=== PATIENT | male | born 1935 | race Caucasian/White ===

== ENCOUNTER 2019-06-08 14:56 | Inpatient (IN) | payer MEDICARE, OTHER ==
--- NOTE | 2019-06-08 15:14 | ER Document Report ---
ED Medical Screen (RME) - General Chief Complaint: S/S of Possible Stroke Stated Complaint: DYSPHAGIA Primary Care Provider: MALCOLM HAMMOND [Primary Care Provider] - Follow up as needed Notes: Patient presents with dysarthria left-sided headache and symptoms began yesterday. Patient sent to CT scan without contrast for emergent CT scan of the head regarding CVA. Doctor's Discharge - Discharge Referrals: MALCOLM HAMMOND [Primary Care Provider] - Follow up as needed
--- NOTE | 2019-06-08 15:32 | RADIOLOGY REPORT (SQ) ---
EXAM DESCRIPTION: CT HEAD WITHOUT COMPLETED DATE/TIME: 06/08/2019 3:15 pm REASON FOR STUDY: cva COMPARISON: None. TECHNIQUE: Axial images acquired through the brain without intravenous contrast. Images reviewed wit h bone, brain and subdural windows. Images stored on PACS. All CT scanners at this facility use dose modulation, iterative reconstruction, and/or weight based d osing when appropriate to reduce radiation dose to as low as reasonably achievable (ALARA). [facility]: Dose Right [facility]: CareDose [facility]: Dose Right [facility]: Teradose 4D [facility]: Voxy RADIATION DOSE: CT Rad equipment meets quality standard of care and radiation dose reduction techniq ues were employed. CTDIvol: 53.2 mGy. DLP: 1070 mGy-cm.. LIMITATIONS: None. FINDINGS: VENTRICLES: Normal size and contour. CEREBRUM: No masses. No hemorrhage. No midline shift. Age appropriate white matter. No evidence for a cute infarction. CEREBELLUM: No masses. No hemorrhage. No alteration of density. No evidence for acute infarction. EXTRA-AXIAL SPACES: No fluid collections. ORBITS AND GLOBE: No intra- or extraconal masses. Normal contour of globe without masses. CALVARIUM: No fracture. PARANASAL SINUSES: No fluid or mucosal thickening. SOFT TISSUES: No mass or hematoma. OTHER: No other significant finding. IMPRESSION: NO ACUTE INTRACRANIAL FINDINGS. EVIDENCE OF ACUTE STROKE: NO. TECHNICAL DOCUMENTATION: JOB ID: [id number] [id number] Quality ID # [id number]: Final reports with documentation of one or more dose reduction techniques (e.g., Au tomated exposure control, adjustment of the mA and/or kV according to patient size, use of iterative reconstruction technique) 2010 [employer]- All Rights Reserved Reading location - IP/workstation name: [email or web address]
[2019-06-08 15:53] LABS: INTERNATIONAL RATION (INR) 0.97; PROTHROMBIN TIME 12.9 SEC (11.4-15.4)
[2019-06-08 15:54] LABS: PARTIAL THROMBOPLASTIN TIME 30.3 SEC (23.5-35.8)
--- NOTE | 2019-06-08 15:54 | ER Document Report ---
ED Neuro Symptoms/Deficit - General Chief Complaint: S/S of Possible Stroke Stated Complaint: DYSPHAGIA Time Seen by Provider: 06/08/19 15:25 Information source: Patient Cannot obtain history due to: Dementia, Mentally challenged Notes: History and physical and review of systems are all limited by patient's receptive aphasia. Apparently, starting on noon yesterday more than 24 hours ago, patient started having symptoms of stroke including left-sided headache and confusion. He did not seek medical attention until today. He was transferred here by EMS alone because of visitation policy. Patient cannot tell me if he is left or right handed. He does not know where he is. By report patient has a history of mild dementia and hypertension. He currently has no complaints. Possible dysphagia. His words are understandable; they just do not make sense. - HPI Patient complains to provider of: Other - Related Data Allergies/Adverse Reactions: prednisone Allergy (Unknown, Verified 06/08/19 15:33) Past Medical History - General Information source: Patient Cannot obtain history due to: Dementia, Altered mental status - Social History Smoking Status: Never Smoker Family History: Reviewed & Not Pertinent Patient has suicidal ideation: No Patient has homicidal ideation: No - Immunizations Immunizations up to date: Yes Review of Systems - Review of Systems -: Yes ROS unobtainable due to patient's medical condition Physical Exam - Vital signs Vitals: Pulse Resp BP Pulse Ox 64 16 161/91 H 97 06/08/19 15:08 06/08/19 15:08 06/08/19 15:08 06/08/19 15:08 Interpretation: Hypertensive - General General appearance: Appears well - HEENT Head: Normocephalic Eyes: Normal Conjunctiva: Normal Cornea: Normal Extraocular movements intact: Yes Pupils: PERRL Ears: Normal Tympanic membrane: Normal Sinus: Normal Nasal: Normal Mouth/Lips: Normal Mucous membranes: Normal Pharynx: Normal. No: Exudate Neck: Normal, Supple - Respiratory Respiratory status: No respiratory distress Chest status: Nontender Breath sounds: Normal - Cardiovascular Rhythm: Regular Heart sounds: Normal auscultation - Abdominal Inspection: Normal Tenderness: Nontender - Back Back: Normal - Extremities General upper extremity: Normal inspection, Normal ROM General lower extremity: Normal inspection, Normal ROM - Neurological Neuro grossly intact: Yes Cognition: Confused Orientation: Disoriented to person, Disoriented to place, Disoriented to time, Disoriented to events Chrissy Coma Scale Eye Opening: Spontaneous Chrissy Coma Scale Verbal: Confused [place] Coma Scale Motor: Obeys Commands [place] Coma Scale Total: 14 Speech: Normal Cranial nerves: Normal Cerebellar coordination: Normal Motor strength normal: LUE, RUE, LLE, RLE Additional motor exam normals: Equal jewelry designer, Dorsiflexion. No: Pronator drift Knee - Reflex grade: 2 = Normal - Psychological Associated symptoms: Normal affect, Normal mood - Skin Skin Temperature: Warm Skin Moisture: Dry Skin Color: Normal Course - Re-evaluation Re-evalutation: 06/08/19 15:56 CT BRAIN NAD PER RADIOLOGIST. 06/08/19 15:57 Patient is not a candidate for TPA since the symptoms started more than 24 hours ago. 06/08/19 17:36 CXR NAD PER RADIOLOGIST. 06/08/19 17:56 DISCUSSED CASE IN DETAIL WITH VAN GRANADOS, FOR ADMISSION. PT STABLE. - Vital Signs Vital signs: Temp Pulse Resp BP Pulse Ox 64 16 161/91 H 97 06/08/19 15:08 06/08/19 15:08 06/08/19 15:08 06/08/19 15:08 - Laboratory Result Diagrams: 06/08/19 15:10 06/08/19 15:10 - Diagnostic Test Radiology reviewed: Image reviewed, Reports reviewed - EKG Interpretation by Me EKG shows normal: Sinus rhythm Rate: Normal [place]/QRS: RBBB Heart block present: 1st Degree Additional EKG results interpreted by me: 06/08/19 16:51 ARTIFACT Discharge - Discharge Clinical Impression: Receptive aphasia CVA (cerebral vascular accident) Qualifiers: CVA mechanism: unspecified Qualified Code(s): I63.9 - Cerebral infarction, unspecified Hypertension Qualifiers: Hypertension type: unspecified Qualified Code(s): I10 - Essential (primary) hypertension Condition: Stable Disposition: ADMITTED INPATIENT Admitting Provider: Elias (Hospitalist) Unit Admitted: Telemetry
[2019-06-08 15:58] LABS: ALBUMIN 3.9 g/dL (3.5-5.0); ALKALINE PHOSPHATASE 81 U/L (38-126); ANION GAP 8 (5-19); ASPARTATE AMINO TRANSFERASE 25 U/L (17-59); BILIRUBIN,TOTAL 0.8 mg/dL (0.2-1.3); BLOOD UREA NITROGEN 12 mg/dL (7-20); CALCIUM 9.2 mg/dL (8.4-10.2); CARBON DIOXIDE 26 mmol/L (22-30); CHLORIDE 100 mmol/L (98-107); GLUCOSE 95 mg/dL (75-110); POTASSIUM 4.3 mmol/L (3.6-5.0); TOTAL PROTEIN 6.8 g/dL (6.3-8.2)
[2019-06-08 16:07] LABS: ABSOLUTE MONOCYTES (AUTO) 0.9 10^3/uL (0.1-1.4); ABSOLUTE NEUT (AUTO) 9.7 10^3/uL (1.7-8.2); BASOPHILS % (AUTO) 0.3 % (0-2); EOSINOPHILS % (AUTO) 0.2 % (0-6); HEMATOCRIT 48.3 % (37.9-51.0); HEMOGLOBIN 16.6 g/dL (13.5-17.0); LYMPHOCYTES % (AUTO) 8.3 % (13-45); MEAN CORPUSCULAR HEMOGLOBIN 31.9 pg (27.0-33.4); MEAN CORPUSCULAR HGB CONC 34.4 g/dL (32.0-36.0); MEAN CORPUSCULAR VOLUME 93 fl (80-97); MONOCYTES % (AUTO) 7.8 % (3-13); PLATELET COUNT 287 10^3/uL (150-450); RED BLOOD COUNT 5.21 10^6/uL (4.35-5.55); RED CELL DISTRIBUTION WIDTH 13.3 % (11.5-14.0); SEGMENTED NEUTROPHILS % (AUTO) 83.4 % (42-78); TOTAL CELLS COUNTED % (AUTO) 100 %; WHITE BLOOD COUNT 11.6 10^3/uL (4.0-10.5)
--- NOTE | 2019-06-08 16:18 | RADIOLOGY REPORT (SQ) ---
EXAM DESCRIPTION: CHEST SINGLE VIEW COMPLETED DATE/TIME: 06/08/2019 4:10 pm REASON FOR STUDY: APHASIA COMPARISON: None. EXAM PARAMETERS: NUMBER OF VIEWS: One view. TECHNIQUE: An AP view of the chest was obtained. RADIATION DOSE: NA LIMITATIONS: None. FINDINGS: LUNGS AND PLEURA: No consolidation, pleural effusion or pneumothorax. MEDIASTINUM AND HILAR STRUCTURES: Hiatal hernia. HEART AND VASCULAR STRUCTURES: The cardiac silhouette is enlarged. The pulmonary vasculature is with in normal limits. BONES: No acute findings. HARDWARE: None in the chest. OTHER: No other finding. IMPRESSION: Cardiomegaly without a superimposed acute cardiopulmonary process. TECHNICAL DOCUMENTATION: JOB ID: [id number] 2010 [employer]- All Rights Reserved Reading location - IP/workstation name: [email or web address]
[2019-06-08] MEDS ORDERED: HYDRALAZINE HCL INJ/PF 20 MG/1 ML SDV IV PRN ×2 (18:25→19:44)
[2019-06-08] MEDS ORDERED: ONDANSETRON HCL INJ/PF 4 MG/2 ML SDV IV PRN (18:26)
[2019-06-08] MEDS ORDERED: MAG HYDROX/AL HYDROX/SIMETH SUSP 30 ML UDCUP PO PRN (18:26)
[2019-06-08] MEDS ORDERED: ACETAMINOPHEN 325 MG TABLET PO PRN (18:26)
[2019-06-08] MEDS ORDERED: ONDANSETRON 4 MG TAB.RAPDIS PO PRN (18:26)
[2019-06-08] MEDS ORDERED: TRAMADOL HCL 50 MG TABLET PO PRN (18:31)
--- NOTE | 2019-06-08 18:46 | PDOC H&P ---
History of Present Illness Admission Date/PCP: ELIZABETH STEVENS DO History of Present Illness: SOLEDAD VINCENT III is a 83 year old male who presents to the emergency room by himself with expressive aphasia and left frontal headache. History is obtained by the patient and he is able to discuss his symptoms though one has to take third time and he is very deliberate in finding his words. Also called his and his daughter who are on the phone together [phone]. His and daughter states that last night around suppertime and right before bedtime patient started having difficulty finding the correct words. This morning it had not improved and therefore he was sent to the emergency room. Because of the covid 19 hysteria no visitors are allowed in the hospital, therefore I called the family. Family tells me also that about 2 months ago he saw a neurologist in [place] and was told that these symptoms of early onset dementia were present. Patient would have times of confusion but never have difficulty with his speech. Tonight his blood pressure was 166/86 and his normal pressure is usually about 125/66. Patient was admitted to the hospital at [facility] in November for uncontrolled hypertension and at that time was started on Norvasc. Was only kept overnight. Patient tells me that he has a living will and is a DNR and his confirms this. CT head scan in the emergency room is negative for hemorrhage with no signs of ischemic changes. Unfortunately our MRI machine is down however I have ordered the study of his head. I will also order carotid Dopplers for tomorrow. Family would like to be called if there are any significant changes. Told them that I thought he would stay 1 or 2 days to regulate his blood pressure and to hopefully get an MRI scan of his head. I also told them that the first 24 to 72 hours is critical concerning blood pressure control and possibly a nonhemorrhagic infarct turning to a hemorrhagic infarct. Also told him that we do not have a neurologist here in the hospital. Patient is very pleasant very stable medically. Only deficit appears to be expressive aphasia. Patient will follow all commands and is able to name simple objects Past Medical History Cardiac Medical History: Reports: Hypertension Neurological History Note: Early dementia Psychiatric Medical History: Reports: Dementia Social History Smoking Status: Never Smoker - Advance Directive Resuscitation Status: Do Not Resuscitate Family History Parental Family History Reviewed: No Children Family History Reviewed: No Sibling(s) Family History Reviewed.: No Medication/Allergy Home Medications: Amlodipine Besylate [Norvasc 2.5 mg Tablet] 2.5 mg PO QPM 06/08/19 Aspirin [Ecotrin 325 mg EC Tablet] 1 tab PO DAILY 06/08/19 Memantine HCl 10 mg PO BID 06/08/19 Omeprazole 20 mg PO QAM 06/08/19 Allergies/Adverse Reactions: prednisone Allergy (Unknown, Verified 06/08/19 15:33) Review of Systems Constitutional: PRESENT: headache(s). ABSENT: chills, fever(s), weight gain, weight loss Neurological: PRESENT: abnormal speech Psychiatric: ABSENT: anxiety, depression, homidical ideation, suicidal ideation Physical Exam Vital Signs: Temp Pulse Resp BP Pulse Ox 98.3 F 64 26 H 174/149 H 96 06/08/19 15:08 06/08/19 15:43 06/08/19 17:16 06/08/19 17:16 06/08/19 17:16 Intake & Output 06/07/19 06/08/19 06/09/19 06:59 06:59 06:59 Weight 92 kg General appearance: PRESENT: no acute distress, well-developed, well-nourished Respiratory exam: PRESENT: clear to auscultation alonzo. ABSENT: rales, rhonchi, wheezes Cardiovascular exam: PRESENT: RRR. ABSENT: diastolic murmur, rubs, systolic murmur Neurological exam: PRESENT: alert, awake, oriented to person, oriented to place, oriented to time, oriented to situation, other - Expressive aphasia Psychiatric exam: PRESENT: appropriate affect, normal mood, other - Pleasant. ABSENT: homicidal ideation, suicidal ideation Results Laboratory Results: 06/08/19 15:10 06/08/19 15:10 06/08/19 06/08/19 15:10 15:10 WBC 11.6 H RBC 5.21 Hgb 16.6 Hct 48.3 MCV 93 MCH 31.9 MCHC 34.4 RDW 13.3 Plt Count 287 Seg Neutrophils % 83.4 H Sodium 133.8 L Potassium 4.3 Chloride 100 Carbon Dioxide 26 Anion Gap 8 BUN 12 Creatinine 0.84 Est GFR ( Amer) > 60 Glucose 95 Calcium 9.2 Total Bilirubin 0.8 AST 25 Alkaline Phosphatase 81 Total Protein 6.8 Albumin 3.9 03/23/20 15:10 Troponin I < 0.012 Impressions: Head CT 06/08/19 15:06 IMPRESSION: NO ACUTE INTRACRANIAL FINDINGS. EVIDENCE OF ACUTE STROKE: NO. Chest X-Ray 06/08/19 15:43 IMPRESSION: Cardiomegaly without a superimposed acute cardiopulmonary process. Assessment and Plan - Diagnosis (1) Expressive aphasia Is this a current diagnosis for this admission?: Yes (2) Dementia Is this a current diagnosis for this admission?: Yes (3) CVA (cerebral vascular accident) Qualifiers: CVA mechanism: unspecified Qualified Code(s): I63.9 - Cerebral infarction, unspecified Is this a current diagnosis for this admission?: Yes (4) Hypertension Qualifiers: Hypertension type: unspecified Qualified Code(s): I10 - Essential (primary) hypertension Is this a current diagnosis for this admission?: Yes - Plan Summary Summary: Have spoken to the patient who understands everything that I say and have also called the family to confirm medical history medical wishes. We will monitor his blood pressure closely start him on Plavix he was already taking 1 adult aspirin daily prior to his CVA. I will order carotid Dopplers for tomorrow and hopefully get an MRI of his brain as well. I did tell them that this is a very critical time of the next 24 to 48 hours. I told him we do not have a neurologist here. They confirmed that the patient is in fact a DNR. Looks very stable however and I doubt he will have any type of catastrophic event, unless his CVA should turn to a hemorrhagic event - Time Time Spent with patient: 35 or more minutes
[2019-06-08 18:53] LABS: APPEARANCE,URINE SLIGHTLY-CLOUDY; BILIRUBIN,URINE NEGATIVE (NEGATIVE); COLOR,URINE AMBER; GLUCOSE, URINE NEGATIVE (NEGATIVE); KETONES,URINE 20 mg/dL (NEGATIVE); PROTEIN,URINE NEGATIVE (NEGATIVE); URINE SPECIFIC GRAVITY 1.017; UROBILINOGEN,URINE NEGATIVE mg/dL (<2.0)
[2019-06-08] MEDS ORDERED: CLOPIDOGREL BISULFATE 75 MG TABLET PO ONE (19:00)
[2019-06-08] MEDS ORDERED: ASPIRIN 325 MG TABLET, ENT COATED PO SCH (19:00)
--- NOTE | 2019-06-08 19:43 | RADIOLOGY REPORT (SQ) ---
EXAM DESCRIPTION: CAROTID DOPPLER COMPLETED DATE/TIME: 06/08/2019 7:28 pm REASON FOR STUDY: CVA COMPARISON: None. TECHNIQUE: Grayscale ultrasound, Doppler velocity and spectra, and color Doppler images acquired of the extra-cranial carotid and vertebral arteries. Images stored on PACS. LIMITATIONS: None. FINDINGS: RIGHT CAROTID CCA Velocities: Within normal limits. ICA Velocities Peak systolic 61 cm/s. End diastolic 16 cm/s. Proximal ICA/CCA peak systolic ratio 1.1. There is a moderate amount of plaque in the carotid bulb. LEFT CAROTID CCA Velocities: Within normal limits. ICA Velocities Peak systolic 72 cm/s. End diastolic 20 cm/s. Proximal ICA/CCA peak systolic ratio 1.4. There is moderate plaque in the carotid bulb. VERTEBRAL ARTERIES: Antegrade flow. Normal waveforms. SUBCLAVIAN ARTERIES: No finding. OTHER: No other significant finding. IMPRESSION: NO HEMODYNAMICALLY SIGNIFICANT STENOSIS. COMMENT: Quality ID #[id number]: Velocity criteria are extrapolated from the diameter data as defined by t he Society of Radiologists in Ultrasound Consensus Conference. Radiology 2003: 229; 340-346. TECHNICAL DOCUMENTATION: JOB ID: [id number] 2010 [employer]- All Rights Reserved Reading location - IP/workstation name: [email or web address]
[2019-06-08] MEDS: AMLODIPINE BESYLATE 2.5 MG TABLET PO SCH (21:00)
--- NOTE | 2019-06-08 21:34 | EKG REPORT ---
SEVERITY:- ABNORMAL ECG - SINUS RHYTHM FIRST DEGREE AV BLOCK RIGHT BUNDLE BRANCH BLOCK : Confirmed by: Rao Cerrato MD 08-Jun-2019 21:33:05
[2019-06-08] MEDS: MEMANTINE HCL 10 MG TABLET PO SCH (23:09)
[2019-06-08] MEDS ORDERED: INFLUENZA QUAD (6MOS+) 2019-20 VAC 0.5 ML SYR IM ONE (23:47)
[2019-06-09 05:35] LABS: ABSOLUTE BASOPHILS # (AUTO) 0.1 10^3/uL (0.0-0.2); ABSOLUTE EOSINOPHILS # (AUTO) 0.1 10^3/uL (0.0-0.6); ABSOLUTE LYMPHOCYTES (AUTO) 1.5 10^3/uL (0.5-4.7); ABSOLUTE NEUT (AUTO) 4.7 10^3/uL (1.7-8.2); BASOPHILS % (AUTO) 0.8 % (0-2); EOSINOPHILS % (AUTO) 1.2 % (0-6); HEMATOCRIT 44.1 % (37.9-51.0); HEMOGLOBIN 15.3 g/dL (13.5-17.0); LYMPHOCYTES % (AUTO) 20.2 % (13-45); MEAN CORPUSCULAR HEMOGLOBIN 31.9 pg (27.0-33.4); MEAN CORPUSCULAR HGB CONC 34.7 g/dL (32.0-36.0); MEAN CORPUSCULAR VOLUME 92 fl (80-97); MONOCYTES % (AUTO) 13.3 % (3-13); PLATELET COUNT 247 10^3/uL (150-450); RED BLOOD COUNT 4.79 10^6/uL (4.35-5.55); RED CELL DISTRIBUTION WIDTH 13.3 % (11.5-14.0); SEGMENTED NEUTROPHILS % (AUTO) 64.5 % (42-78); TOTAL CELLS COUNTED % (AUTO) 100 %; WHITE BLOOD COUNT 7.2 10^3/uL (4.0-10.5)
[2019-06-09] MEDS: PANTOPRAZOLE SODIUM 20 MG TABLET.DR PO SCH (05:46)
[2019-06-09 06:09] LABS: ANION GAP 6 (5-19); BLOOD UREA NITROGEN 12 mg/dL (7-20); CALCIUM 8.7 mg/dL (8.4-10.2); CARBON DIOXIDE 23 mmol/L (22-30); CHLORIDE 103 mmol/L (98-107); GLUCOSE 83 mg/dL (75-110); POTASSIUM 3.9 mmol/L (3.6-5.0)
[2019-06-09 06:34] LABS: TRIGLYCERIDES 94 mg/dL (<150)
[2019-06-09 06:45] LABS: DIRECT LDL 108 mg/dL (<100)
[2019-06-09] MEDS: ATORVASTATIN CALCIUM 40 MG TABLET PO SCH (09:07)
[2019-06-09] MEDS: DOCUSATE SODIUM 100 MG CAPSULE PO SCH (09:07)
[2019-06-09] MEDS: ASPIRIN 325 MG TABLET, ENT COATED PO SCH (09:07)
[2019-06-09] MEDS: MEMANTINE HCL 10 MG TABLET PO SCH ×2 (09:07→21:58)
[2019-06-09] MEDS: CLOPIDOGREL BISULFATE 75 MG TABLET PO SCH (09:08)
[2019-06-09] MEDS: ENOXAPARIN SODIUM INJ 40 MG/0.4 ML DISP.SYRIN SUBCUT SCH (09:08)
[2019-06-09] MEDS ORDERED: MEMANTINE HCL 10 MG TABLET PO SCH (10:00)
[2019-06-09] MEDS ORDERED: NORMAL SALINE 1000 ML 1,000 ML IV PRN (12:35)
--- NOTE | 2019-06-09 12:45 | PDOC PROGRESS REPORT ---
Subjective Progress Note for:: 06/09/19 Subjective:: History of Present Illness: SOLEDAD VINCENT III is a 83 year old male who presents to the emergency room by himself with expressive aphasia and left frontal headache. History is obtained by the patient and he is able to discuss his symptoms though one has to take third time and he is very deliberate in finding his words. Also called his and his daughter who are on the phone together [phone], [phone]. His and daughter states that last night around suppertime and right before bedtime patient started having difficulty finding the correct words. This morning it had not improved and therefore he was sent to the emergency room. Because of the covid 19 hysteria no visitors are allowed in the hospital, therefore I called the family. Family tells me also that about 2 months ago he saw a neurologist in [place] and was told that these symptoms of early onset dementia were present. Patient would have times of confusion but never have difficulty with his speech. Tonight his blood pressure was 166/86 and his normal pressure is usually about 125/66. Patient was admitted to the hospital at [facility] in November for uncontrolled hypertension and at that time was started on Norvasc. Was only kept overnight. Patient tells me that he has a living will and is a DNR and his confirms this. CT head scan in the emergency room is negative for hemorrhage with no signs of ischemic changes. Unfortunately our MRI machine is down however I have ordered the study of his head. I will also order carotid Dopplers for tomorrow. Family would like to be called if there are any significant changes. Told them that I thought he would stay 1 or 2 days to regulate his blood pressure and to hopefully get an MRI scan of his head. I also told them that the first 24 to 72 hours is critical concerning blood pressure control and possibly a nonhemorrhagic infarct turning to a hemorrhagic infarct. Also told him that we do not have a neurologist here in the hospital. Patient is very pleasant very stable medically. Only deficit appears to be expressive aphasia. Patient will follow all commands and is able to name simple objects Interval history: 06/09/2019: Patient seen and examined. Headache is significantly improved. His speech is normal currently. No neurological deficits. Reason For Visit: CVA, DEMENTIA, HYPERTENSION, HEARING DEFICIT Physical Exam Vital Signs: Temp Pulse Resp BP Pulse Ox 98.3 F 68 20 120/62 98 06/08/19 15:08 06/09/19 07:00 06/09/19 07:00 06/09/19 07:00 06/09/19 07:00 Intake & Output 06/08/19 06/09/19 06/10/19 06:59 06:59 06:59 Intake Total 260 Output Total 0 Balance 260 Weight 202 lb 13.204 oz Exam: Patient is no acute distress Alert oriented to time place person No anxiety or depression Head: atraumatic normocephalic Pupils: are equal reactive Neck: is supple and trachea is central no lymphadenopathy No pharyngeal erythema or exudates Heart: Regular rate and rhythm, no peripheral edema Lungs: clear to auscultation, no respiratory distress Abdomen: nontender nondistended Neurological exam: unremarkable Musculoskeletal: No joint swelling or effusion chronic lower back pain and tenderness No suicidal or homicidal ideation Results Laboratory Results: 06/09/19 05:07 06/09/19 05:07 06/08/19 06/08/19 06/08/19 15:10 15:10 18:25 WBC 11.6 H RBC 5.21 Hgb 16.6 Hct 48.3 MCV 93 MCH 31.9 MCHC 34.4 RDW 13.3 Plt Count 287 Seg Neutrophils % 83.4 H Sodium 133.8 L Potassium 4.3 Chloride 100 Carbon Dioxide 26 Anion Gap 8 BUN 12 Creatinine 0.84 Est GFR ( Amer) > 60 Glucose 95 Calcium 9.2 Total Bilirubin 0.8 AST 25 Alkaline Phosphatase 81 Ammonia < 8.7 L Total Protein 6.8 Albumin 3.9 Triglycerides Cholesterol LDL Cholesterol Direct VLDL Cholesterol HDL Cholesterol Urine Color Urine Appearance Urine pH Ur Specific [place] Urine Protein Urine Glucose (UA) Urine Ketones Urine Blood Urine RBC (Auto) 06/08/19 06/09/19 06/09/19 18:25 05:07 05:07 WBC 7.2 RBC 4.79 Hgb 15.3 Hct 44.1 MCV 92 MCH 31.9 MCHC 34.7 RDW 13.3 Plt Count 247 Seg Neutrophils % 64.5 Sodium 132.2 L Potassium 3.9 Chloride 103 Carbon Dioxide 23 Anion Gap 6 BUN 12 Creatinine 0.74 Est GFR ( Amer) > 60 Glucose 83 Calcium 8.7 Total Bilirubin AST Alkaline Phosphatase Ammonia Total Protein Albumin Triglycerides Cholesterol LDL Cholesterol Direct VLDL Cholesterol HDL Cholesterol Urine Color BUD Urine Appearance SLIGHTLY-CLOUDY Urine pH 7.0 Ur Specific [place] 1.017 Urine Protein NEGATIVE Urine Glucose (UA) NEGATIVE Urine Ketones 20 H Urine Blood NEGATIVE Urine RBC (Auto) 1 06/09/19 05:07 WBC RBC Hgb Hct MCV MCH MCHC RDW Plt Count Seg Neutrophils % Sodium Potassium Chloride Carbon Dioxide Anion Gap BUN Creatinine Est GFR ( Amer) Glucose Calcium Total Bilirubin AST Alkaline Phosphatase Ammonia Total Protein Albumin Triglycerides 94 Cholesterol 144.10 LDL Cholesterol Direct 108 H VLDL Cholesterol 19.0 HDL Cholesterol 34 L Urine Color Urine Appearance Urine pH Ur Specific [place] Urine Protein Urine Glucose (UA) Urine Ketones Urine Blood Urine RBC (Auto) 06/08/19 15:10 Troponin I < 0.012 Impressions: Carotid Doppler Study 06/08/19 00:00 IMPRESSION: NO HEMODYNAMICALLY SIGNIFICANT STENOSIS. Head CT 06/08/19 15:06 IMPRESSION: NO ACUTE INTRACRANIAL FINDINGS. EVIDENCE OF ACUTE STROKE: NO. Chest X-Ray 06/08/19 15:43 IMPRESSION: Cardiomegaly without a superimposed acute cardiopulmonary process. Assessment and Plan - Plan Summary Summary: TIA versus acute stroke Symptoms has resolved. CT of the head negative. Carotid ultrasound unremarkable. Patient in sinus rhythm. Echocardiogram pending. MRI machine is broken at this time. Discussed with neurologist at [facility]. MRI can be done outpatient if not done in the hospital. PT/OT/ST. Patient was started on aspirin and Plavix. Will possibly be discharged on aspirin. A1c is 5.0 and LDL is 108. Will start atorvastatin. DVT prophylaxis. Dementia Continue home medications Hypertension Avoid hypotension. Continue IV fluids. Monitor blood pressure.
[2019-06-09] MEDS: AMLODIPINE BESYLATE 2.5 MG TABLET PO SCH (17:19)
[2019-06-09] MEDS ORDERED: AMLODIPINE BESYLATE 2.5 MG TABLET PO SCH (18:00)
--- NOTE | 2019-06-09 21:39 | RADIOLOGY REPORT (SQ) ---
EXAM DESCRIPTION: MR BRAIN WITHOUT IV CONTRAST COMPLETED DATE/TME: 06/09/2019 00:00 CLINICAL HISTORY: 83 years, Male, CVA, expressive aphasia COMPARISON: Prior CT head from 06/08/2019 TECHNIQUE: Multiplanar, multisequence MR images of the brain were obtained without the use of intravenous contrast. Images stored on PACS. LIMITATIONS: None. FINDINGS: Assessment of the midline structures reveals a nearly completely empty sella. Evaluation of the brain parenchyma reveals moderate periventricular and patchy subcortical white matter signal alteration. Focal areas of CSF signal are noted about the bilateral frontal lobe white matter, indicative of remote lacunar infarcts. In addition, there is moderate dilatation of the ventricles and sulcal spaces. No extra-axial fluid collections are identified. Intracranial arterial and venous flow voids show no suspicious finding. Diffusion weighted images reveal a focus of hyperintense diffusion signal located within the right cerebellar hemisphere on image 6 of series 4. However, there is somewhat normalization of the ADC signal in this region. Likewise, this area demonstrates hyperintense T2 signal. Globes and orbits show no suspicious abnormality. Paranasal sinuses and mastoid air cells are clear. The nasal septum is mildly deviated towards the right. IMPRESSION: Findings indicate a late acute to subacute infarct involving the right cerebellar hemisphere. Moderate chronic microvascular ischemic change with generalized atrophy. copyright 2010 [employer]- All Rights Reserved
[2019-06-10] MEDS: PANTOPRAZOLE SODIUM 20 MG TABLET.DR PO SCH (06:38)
--- NOTE | 2019-06-10 08:33 | RADIOLOGY REPORT (SQ) ---
EXAM DESCRIPTION: CT HEAD WITHOUT COMPLETED DATE/TIME: 06/10/2019 7:54 am REASON FOR STUDY: TIA COMPARISON: 06/08/2019 TECHNIQUE: Axial images acquired through the brain without intravenous contrast. Images reviewed wi th bone, brain and subdural windows. Additional sagittal and coronal reconstructions were generated. Images stored on PACS. All CT scanners at this facility use dose modulation, iterative reconstruction, and/or weight based d osing when appropriate to reduce radiation dose to as low as reasonably achievable (ALARA). [facility]: Dose Right [facility]: CareDose [facility]: Dose Right [facility]: Teradose 4D [facility]: WhoSay RADIATION DOSE: CT Rad equipment meets quality standard of care and radiation dose reduction techniq ues were employed. CTDIvol: 48.7 mGy. DLP: 955 mGy-cm.mGy. LIMITATIONS: None. FINDINGS: VENTRICLES: Prominent. CEREBRUM: No masses. No hemorrhage. No midline shift. Areas of low density in the white matter mos t likely due to chronic micro-vascular ischemic change. No evidence for acute infarction. CEREBELLUM: No masses. No hemorrhage. No alteration of density. No evidence for acute infarction. EXTRAAXIAL SPACES: Age-related involutional change. No fluid collections. No masses. ORBITS AND GLOBE: No intra- or extraconal masses. Normal contour of globe without masses. CALVARIUM: No fracture. PARANASAL SINUSES: No fluid or mucosal thickening. SOFT TISSUES: No mass or hematoma. OTHER: No other significant finding. IMPRESSION: CHRONIC CHANGES OF ATROPHY AND MICROVASCULAR ISCHEMIA. NO ACUTE PROCESS. EVIDENCE OF ACUTE STROKE: NO. TECHNICAL DOCUMENTATION: JOB ID: [id number] Quality ID # [id number]: Final reports with documentation of one or more dose reduction techniques (e.g., Au tomated exposure control, adjustment of the mA and/or kV according to patient size, use of iterative reconstruction technique) 2010 [employer]- All Rights Reserved Reading location - IP/workstation name: [email or web address]
[2019-06-10] MEDS: DOCUSATE SODIUM 100 MG CAPSULE PO SCH (10:17)
[2019-06-10] MEDS: ASPIRIN 325 MG TABLET, ENT COATED PO SCH (10:17)
[2019-06-10] MEDS: ATORVASTATIN CALCIUM 40 MG TABLET PO SCH (10:18)
[2019-06-10] MEDS: CLOPIDOGREL BISULFATE 75 MG TABLET PO SCH (10:18)
[2019-06-10] MEDS: ENOXAPARIN SODIUM INJ 40 MG/0.4 ML DISP.SYRIN SUBCUT SCH (10:18)
[2019-06-10] MEDS: MEMANTINE HCL 10 MG TABLET PO SCH (10:18)
--- NOTE | 2019-06-10 12:10 | XCELERA REPORT ---
[address] [address] Transthoracic Echocardiogram Report Name: WILL VINCENTMARCIA CARINE Newton Age: 83 yrs Gender: Male : 1935 Patient Status: Inpatient Patient Location: [facility]^A Study Date: 06/10/2019 08:19 AM History: Stroke Height: 65 in Weight: 190 lb BSA: 1.9 m2 Procedure: A complete two-dimensional transthoracic echocardiogram was performed (2D, M-mode, spectral and color flow Doppler). The study was technically difficult with many images being suboptimal in quality. Reason For Study: stroke Ordering Physician: IRENE WEST Performed By: Lluvia Pichardo Interpretation Summary No emobolic source is seen. NILE is more sensitive for this. Left ventricular systolic function is normal. The Ejection Fraction estimate is 55-60% The right ventricle is normal in size and function. There is a trace amount of mitral regurgitation There is no aortic valve stenosis There is a trace amount of tricuspid regurgitation There is no pericardial effusion. MMode/2D Measurements & Calculations RVDd: 2.9 cm LVIDd: 5.1 cm FS: 42.6 % Ao root diam: IVSd: 1.3 cm LVIDs: 2.9 cm EDV(Teich): 3.1 cm 124.4 ml Ao root area: LVPWd: 0.89 cm ESV(Teich): 33.2 ml7.6 cm2 EF(Teich): 73.3 % EDV(MOD-sp4): SV(MOD-sp4): 84.2 ml 51.2 ml ESV(MOD-sp4): 33.1 ml EF(MOD-sp4): 60.7 % Doppler Measurements & Calculations MV E max shirley: MV dec slope: Ao V2 max: LV V1 max P.4 cm/sec 131.2 cm/sec 4.1 mmHg MV A max shirley: 202.4 cm/sec2 Ao max PG: LV V1 max: 86.2 cm/sec MV dec time: 0.23 sec 6.9 mmHg 101.1 cm/sec MV E/A: 0.54 PI end-d shirley: TR max shirley: 98.2 cm/sec 205.8 cm/sec TR max P.0 mmHg Left Ventricle The left ventricle is grossly normal size. There is moderate concentric left ventricular hypertrophy. Left ventricular systolic function is normal. The Ejection Fraction estimate is 55-60%. Doppler measurements suggest impaired left ventricular relaxation, which is associated with grade I/IV or mild diastolic dysfunction. No regional wall motion abnormalities noted. There is no thrombus. Right Ventricle The right ventricle is normal in size and function. Atria The right atrium is normal. The left atrium is borderline dilated. Mitral Valve The mitral valve is grossly normal. There is a trace amount of mitral regurgitation. Aortic Valve The aortic valve is trileaflet. The aortic valve opens well. The aortic valve is sclerotic, but shows no functional abnormality. The aortic valve is mildly calcified. There is no aortic valve stenosis. No aortic regurgitation is present. Tricuspid Valve The tricuspid valve is normal in structure and function. There is a trace amount of tricuspid regurgitation. Tricuspid regurgitation jet envelope not well defined to measure RV systolic pressure accurately. Pulmonic Valve The pulmonic valve is normal in structure and function. There is a trace amount of pulmonic regurgitation. Great Vessels The aortic root is normal size. The inferior vena cava was not visualized. Effusions There is no pericardial effusion. : IRENE WEST Anil
[2019-06-10 14:32] VITALS: BP 122/69
--- NOTE | 2019-06-10 14:36 | PDOC DISCHARGE SUMMARY ---
Impression - Admit/DC Date/PCP Admission Date/Primary Care Provider: 06/08/19 18:46 ELIZABETH STEVENS, Discharge Date: 06/10/19 - Assessment Summary: Reason For Visit: CVA, DEMENTIA, HYPERTENSION, HEARING DEFICIT History of Present Illness: SOLEDAD VINCENT III is a 83 year old male who presents to the emergency room by himself with expressive aphasia and left frontal headache. History is obtained by the patient and he is able to discuss his symptoms though one has to take third time and he is very deliberate in finding his words. Also called his and his daughter who are on the phone together [phone]. His and daughter states that last night around suppertime and right before bedtime patient started having difficulty finding the correct words. This morning it had not improved and therefore he was sent to the emergency room. Because of the covid 19 hysteria no visitors are allowed in the hospital, therefore I called the family. Family tells me also that about 2 months ago he saw a neurologist in [place] and was told that these symptoms of early onset dementia were present. Patient would have times of confusion but never have difficulty with his speech. Tonight his blood pressure was 166/86 and his normal pressure is usually about 125/66. Patient was admitted to the hospital at [facility] in November for uncontrolled hypertension and at that time was started on Norvasc. Was only kept overnight. Patient tells me that he has a living will and is a DNR and his confirms this. CT head scan in the emergency room is negative for hemorrhage with no signs of ischemic changes. Unfortunately our MRI machine is down however I have ordered the study of his head. I will also order carotid Dopplers for tomorrow. Family would like to be called if there are any significant changes. Told them that I thought he would stay 1 or 2 days to regulate his blood pressure and to hopefully get an MRI scan of his head. I also told them that the first 24 to 72 hours is critical concerning blood pressure control and possibly a nonhemorrhagic infarct turning to a hemorrhagic infarct. Also told him that we do not have a neurologist here in the hospital. Patient is very pleasant very stable medically. Only deficit appears to be expressive aphasia. Patient will follow all commands and is able to name simple objects Interval history: 06/09/2019: Patient seen and examined. Headache is significantly improved. His speech is normal currently. No neurological deficits. Physical Exam Patient is no acute distress Alert oriented to time place person No anxiety or depression Head: atraumatic normocephalic Pupils: are equal reactive Neck: is supple and trachea is central no lymphadenopathy No pharyngeal erythema or exudates Heart: Regular rate and rhythm, no peripheral edema Lungs: clear to auscultation, no respiratory distress Abdomen: nontender nondistended Neurological exam: unremarkable Musculoskeletal: No joint swelling or effusion chronic lower back pain and tenderness No suicidal or homicidal ideation Hospital course: Acute stroke Symptoms has resolved. CT of the head negative. Carotid ultrasound unremarkable. Patient in sinus rhythm. Echocardiogram low risk. 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 Patient received PT/OT/ST. Continue aspirin. A1c is 5.0 and LDL is 108. We started atorvastatin. Okay for discharge. Follow-up outpatient with PCP and neurology. Dementia Continue home medications Hypertension Patient received IV fluids. Continued home medications. - Additional Information Resuscitation Status: Do Not Resuscitate Discharge Diet: Cardiac Discharge Activity: Activity As Tolerated Referrals: LOCALMD,NO [NO LOCAL MD] - Follow up as needed Prescriptions: Atorvastatin Calcium [Lipitor 40 mg Tablet] 40 mg PO DAILY #30 tablet Home Medications: Amlodipine Besylate [Norvasc 2.5 mg Tablet] 2.5 mg PO QPM 06/08/19 Aspirin [Ecotrin 325 mg EC Tablet] 1 tab PO DAILY 06/08/19 Memantine HCl 10 mg PO BID 06/08/19 Omeprazole 20 mg PO QAM 06/08/19 Atorvastatin Calcium [Lipitor 40 mg Tablet] 40 mg PO DAILY #30 tablet 06/10/19 History of Present Illiness History of Present Illness: SOLEDAD VINCENT III is a 83 year old male Physical Exam Vital Signs: Temp Pulse Resp BP Pulse Ox 97.4 F 78 16 122/69 98 06/10/19 12:22 06/10/19 12:22 06/10/19 12:22 06/10/19 12:22 06/10/19 12:22 Intake & Output 06/09/19 06/10/19 06/11/19 06:59 06:59 06:59 Intake Total 260 1596 Output Total 0 Balance 260 1596 Weight 202 lb 13.204 oz 190 lb 11.198 oz Results Laboratory Results: WBC 7.2 10^3/uL (4.0-10.5) 06/09/19 05:07 RBC 4.79 10^6/uL (4.35-5.55) 06/09/19 05:07 Hgb 15.3 g/dL (13.5-17.0) 06/09/19 05:07 Hct 44.1 % (37.9-51.0) 06/09/19 05:07 MCV 92 fl (80-97) 06/09/19 05:07 MCH 31.9 pg (27.0-33.4) 06/09/19 05:07 MCHC 34.7 g/dL (32.0-36.0) 06/09/19 05:07 RDW 13.3 % (11.5-14.0) 06/09/19 05:07 Plt Count 247 10^3/uL (150-450) 06/09/19 05:07 Lymph % (Auto) 20.2 % (13-45) 06/09/19 05:07 [place]k % (Auto) 13.3 % (3-13) H 06/09/19 05:07 Eos % (Auto) 1.2 % (0-6) 06/09/19 05:07 Baso % (Auto) 0.8 % (0-2) 06/09/19 05:07 Absolute Neuts (auto) 4.7 10^3/uL (1.7-8.2) 06/09/19 05:07 Absolute Lymphs (auto) 1.5 10^3/uL (0.5-4.7) 06/09/19 05:07 Absolute Monos (auto) 1.0 10^3/uL (0.1-1.4) 06/09/19 05:07 Absolute Eos (auto) 0.1 10^3/uL (0.0-0.6) 06/09/19 05:07 Absolute Basos (auto) 0.1 10^3/uL (0.0-0.2) 06/09/19 05:07 Seg Neutrophils % 64.5 % (42-78) 06/09/19 05:07 PT 12.9 SEC (11.4-15.4) 06/08/19 15:10 INR 0.97 06/08/19 15:10 APTT 30.3 SEC (23.5-35.8) 06/08/19 15:10 Sodium 132.2 mmol/L (137-145) L 06/09/19 05:07 Potassium 3.9 mmol/L (3.6-5.0) 06/09/19 05:07 Chloride 103 mmol/L (98-107) 06/09/19 05:07 Carbon Dioxide 23 mmol/L (22-30) 06/09/19 05:07 Anion Gap 6 (5-19) 06/09/19 05:07 BUN 12 mg/dL (7-20) 06/09/19 05:07 Creatinine 0.74 mg/dL (0.52-1.25) 06/09/19 05:07 Est GFR ( Amer) > 60 (>60) 06/09/19 05:07 Est GFR (MDRD) Non-Af > 60 (>60) 06/09/19 05:07 Glucose 83 mg/dL (75-110) 06/09/19 05:07 POC Glucose 109 mg/dL (70-110) 06/08/19 16:09 Hemoglobin A1c % 5.0 % (4.7-6.0) 06/09/19 05:07 Calcium 8.7 mg/dL (8.4-10.2) 06/09/19 05:07 Total Bilirubin 0.8 mg/dL (0.2-1.3) 06/08/19 15:10 Direct Bilirubin 0.0 mg/dL (0.0-0.4) 06/08/19 15:10 Neonat Total Bilirubin Not Reportable 06/08/19 15:10 Neonat Direct Bilirubin Not Reportable 06/08/19 15:10 Neonat Indirect Bili Not Reportable 06/08/19 15:10 AST 25 U/L (17-59) 06/08/19 15:10 ALT 14 U/L (<50) 06/08/19 15:10 Alkaline Phosphatase 81 U/L (38-126) 06/08/19 15:10 Ammonia < 8.7 umol/L (9-33) L 06/08/19 18:25 Troponin I < 0.012 ng/mL 06/08/19 15:10 Total Protein 6.8 g/dL (6.3-8.2) 06/08/19 15:10 Albumin 3.9 g/dL (3.5-5.0) 06/08/19 15:10 Triglycerides 94 mg/dL (<150) 06/09/19 05:07 Cholesterol 144.10 mg/dL (0-200) 06/09/19 05:07 LDL Cholesterol Direct 108 mg/dL (<100) H 06/09/19 05:07 VLDL Cholesterol 19.0 mg/dL (10-31) 06/09/19 05:07 HDL Cholesterol 34 mg/dL (>40) L 06/09/19 05:07 Urine Color BUD 06/08/19 18:25 Urine Appearance SLIGHTLY-CLOUDY 06/08/19 18:25 Urine pH 7.0 (5.0-9.0) 06/08/19 18:25 Ur Specific [place] 1.017 06/08/19 18:25 Urine Protein NEGATIVE mg/dL (NEGATIVE) 06/08/19 18:25 Urine Glucose (UA) NEGATIVE mg/dL (NEGATIVE) 06/08/19 18:25 Urine Ketones 20 mg/dL (NEGATIVE) H 06/08/19 18:25 Urine Blood NEGATIVE (NEGATIVE) 06/08/19 18:25 Urine Nitrite (Reflex) NEGATIVE (NEGATIVE) 06/08/19 18:25 Urine Bilirubin NEGATIVE (NEGATIVE) 06/08/19 18:25 Urine Urobilinogen NEGATIVE mg/dL (<2.0) 06/08/19 18:25 Leukocyte Esterase Rfl NEGATIVE (NEGATIVE) 06/08/19 18:25 Urine RBC (Auto) 1 /HPF 06/08/19 18:25 Urine WBC (Reflex) 1 /HPF 06/08/19 18:25 Squamous Epi Cells Auto <1 /HPF 06/08/19 18:25 Urine Mucus (Auto) FEW /LPF 06/08/19 18:25 Urine Ascorbic Acid 40 (NEGATIVE) H 06/08/19 18:25 06/08/19 15:10 Troponin I < 0.012 Impressions: Carotid Doppler Study 06/08/19 00:00 IMPRESSION: NO HEMODYNAMICALLY SIGNIFICANT STENOSIS. Head CT 06/08/19 15:06 IMPRESSION: NO ACUTE INTRACRANIAL FINDINGS. EVIDENCE OF ACUTE STROKE: NO. Chest X-Ray 06/08/19 15:43 IMPRESSION: Cardiomegaly without a superimposed acute cardiopulmonary process. Head MRI 06/09/19 00:00 IMPRESSION: Findings indicate a late acute to subacute infarct involving the right cerebellar hemisphere. Moderate chronic microvascular ischemic change with generalized atrophy. copyright 2011 [employer]- All Rights Reserved Head CT 06/10/19 00:00 IMPRESSION: CHRONIC CHANGES OF ATROPHY AND MICROVASCULAR ISCHEMIA. NO ACUTE PROCESS. EVIDENCE OF ACUTE STROKE: NO. Plan Time Spent: Greater than 30 Minutes - 35 minutes Stroke Is this a Stroke Patient?: Yes Acute Heart Failure - Is this a Heart Failure Patient?: No
== END 2019-06-10 16:25 | disposition home or self-care (01) | DRG 66 ==
LOC: ER 14:56 → EH 18:46 → 3W 21:35
PROVIDERS: ADMIT Internal Medicine; ATTEND Family Medicine
DX: I63.441 Cerebral infarction due to embolism of right cerebellar artery (principal); R47.01 Aphasia; F03.90 Unspecified dementia, unspecified severity, without behavioral disturbance, psychotic disturbance, mood disturbance, and anxiety; I10 Essential (primary) hypertension; Z66 Do not resuscitate
CPT/HCPCS: 36415; 70450; 70551; 71045; 80048; 80053; 80061; 81001; 82140; 82962; 83036; 84484; 85025; 85610; 85730; 93005; 93010; 93306; 93880; 99285; J0360; J1650; J3490